=== PATIENT | female | born 1965 | race Caucasian/White ===

== ENCOUNTER 2019-06-14 13:22 | Emergency (ER) | payer OTHER, SELFPAY ==
--- NOTE | 2019-06-14 13:31 | ED.URI ---
HPI - URI/Sore Throat General Chief Complaint: Upper Respiratory Infection Stated Complaint: Fever Time Seen by Provider: 06/14/19 13:31 Source: patient and RN notes reviewed History of Present Illness HPI Narrative: Patient is a 53-year-old female presents the urgent care with her with complaints of fever, chills, headache, congestion, wheezing, cough, runny nose since Thursday. Patient states that she has been taking Tylenol and Excedrin with little relief. Denies of any shortness of breath. No other acute complaints. No acute distress noted. Patient read the plan of care. Related Data Home Medications Medication Instructions Recorded Confirmed diclofenac sodium 75 mg PO BID 06/14/19 06/14/19 Allergies Allergy/AdvReac Type Severity Reaction Status Date / Time No Known Allergies Allergy Verified 06/14/19 13:45 Review of Systems Review of Systems: Narrative: CONSTITUTIONAL: Reports of fever, chills, sweats EYES: Denies visual changes, redness, or discharge. ENT: Reports of rhinorrhea, congestion CARDIOVASCULAR: Denies chest pain, palpitations, or edema. RESPIRATORY: Reports of chest congestion, cough, wheezing GASTROINTESTINAL: Denies abdominal pain, nausea, vomiting, or diarrhea. GENITOURINARY: Denies dysuria or hematuria. SKIN: Denies rash or itching. MUSCULOSKELETAL: Denies back pain, joint pain; reports of body aches NEUROLOGIC: Reports of headache All other systems reviewed are negative, except as documented in HPI. PMFSH Social History Social History Gender identity (if verbalized by the patient): Female Comments At the time of my signature, I reviewed and agree with the nursing past medical, surgical, social, and family history. There is no relevant family history pertinent to the patient complaint. Exam Narrative: Exam Narrative: GENERAL: This is a well-nourished, well-developed patient, appears fatigued and slightly flushed HEAD: normocephalic, atraumatic. EYES: PERRL. Sclera clear/white. Vision is grossly intact. EARS: External ears normal, auditory canals clear and without drainage, mild fluid noted behind bilateral TMs, TMs normal without perforation. Hearing grossly intact. NOSE: External nose normal with no obvious nasal discharge, bilateral erythemic nares, clear to yellow rhinorrhea. THROAT: Mucous membranes moist, posterior pharynx clear. Mild postnasal drainage NECK: Neck supple CARDIOVASCULAR: Regular rate and rhythm without murmurs, gallops, or rubs. RESPIRATORY: Clear to auscultation. Breath sounds equal bilaterally. No wheezes, rales, or rhonchi. GASTROINTESTINAL: Abdomen soft, non-tender, nondistended. Bowel sounds are active. No hepato-splenomegaly, or palpable masses. No guarding. SKIN: warm, intact with no suspicious lesions or rash, good texture and turgor. NEURO: awake, alert, and oriented to person, place and time. There were no obvious focal neurologic abnormalities. EXTREMITIES: No clubbing, cyanosis, or edema. Course Vital Signs Vital signs: Vital Signs Temperature 101.1 F H 06/14/19 13:38 Pulse Rate 102 H 06/14/19 13:38 Respiratory Rate 18 06/14/19 13:38 Blood Pressure 118/78 06/14/19 13:38 Pulse Oximetry 99 06/14/19 13:38 Temperature 101.1 F H 06/14/19 13:38 Pulse Rate 102 H 06/14/19 13:38 Respiratory Rate 18 06/14/19 13:38 Blood Pressure 118/78 06/14/19 13:38 Pulse Oximetry 99 06/14/19 13:38 Reviewed MDM - URI/Sore Throat MDM Narrative Medical decision making narrative: Reviewed lab results with the patient. She is aware that she is positive for influenza A. Treat symptoms with epck-heb-nksinvb medication such as Robitussin/Delsym for cough, Claritin for allergy-like symptoms, Flonase for nasal congestion, Tylenol/Motrin for fever/body aches. Increase fluids, especially water and rest. Use a humidifier. Be aware of symptoms of dehydration such as lethargy, confusion, increased weakness, dry lips, dry eyes. Follow-up with Let[facility]
[2019-06-14 13:38] VITALS: BP 118/78; PULSE 102; RESP 18; TEMP 38.4; O2SAT 99
== END 2019-06-14 14:05 | disposition home or self-care (01) ==
PROVIDERS: Emergency Provider Nurse Practitioner Family
DX: J10.1 Influenza due to other identified influenza virus with other respiratory manifestations (principal)
CPT/HCPCS: 87804; 99213; G0463

== ENCOUNTER 2020-06-03 14:40 | Emergency (ER) | payer OTHER, SELFPAY ==
--- NOTE | ~2020-06-03 | CT_ITS ---
EXAMINATION: CT abdomen pelvis w con DATE: 06/03/2020 16:37 INDICATION: Left-sided abdomen pain TECHNIQUE: Computed tomography (CT) of the abdomen and pelvis was performed with 100 cc Omnipaque 350 intravenous contrast. The dose-length product was 554.51 mGy-cm. Automated exposure control and iter ative reconstruction technique were employed. COMPARISON: None. FINDINGS: Lung bases unremarkable. Heart size normal. No significant pleural or pericardial effusion. No significant vascular abnormality. No lymphadenopathy. Fatty infiltration of the liver. The spleen, pancreas, adrenal glands and kidneys are unremarkable. G allbladder is present. Nonobstructive bowel gas pattern. No evidence for diverticulitis. Normal appen cheng. There is a cystic tubular structure in the right pelvis above the bladder with adjacent radioden sity, possibly surgical clip. No acute osseous abnormality. No free air or free fluid. IMPRESSION: 1. No acute abdominal abnormality. 2: Cystic tubular structure right upper pelvis measuring 4 x 1.3 cm greatest axial dimension. Differ ential diagnosis includes dilated fallopian tube and peritoneal inclusion cyst. Consider follow-up pe lvic ultrasound on a nonemergent basis. Reviewed, dictated and finalized at location A. [facility] IMPRESSION: 1. No acute abdominal abnormality. 2: Cystic tubular structure right upper pelvis measuring 4 x 1.3 cm greatest a xial dimension. Differential diagnosis includes dilated fallopian tube and lang toneal inclusion cyst. Consider follow-up pelvic ultrasound on a nonemergent ba sis.
[2020-06-03 14:47] VITALS: BP 137/75; PULSE 78; RESP 20; TEMP 36.6; O2SAT 98
[2020-06-03 15:01] LABS: Basophils Absolute Auto 0.1 K/mm3 (0.0-0.1); Basophils Percent Auto 1.1 % (0.2-1.2); Eosinophils Absolute Auto 0.3 K/mm3 (0-0.3); Eosinophils Percent Auto 4.6 % (0-4.4); Hematocrit 41.6 % (37.0-47.0); Hemoglobin 13.9 g/dL (12.0-15.0); Immature Granulocyte Absolute 0.01 K/mm3 (0.00-0.031); Immature Granulocyte Percent A 0.2 % (0-0.5); Lymphocytes Percent Auto 43.9 % (18.3-44.2); Mean Corpuscular HGB Conc 33.4 g/dl (32-36); Mean Corpuscular Hemoglobin 30.2 pg (26-34); Mean Corpuscular Volume 90.4 fl (80-100); Mean Platelet Volume 9.8 fl (7.4-10.4); Monocytes Absolute Auto 0.5 K/mm3 (0.1-0.6); Monocytes Percent Auto 8.9 % (2.6-8.5); Neutrophils Absolute Auto 2.4 K/mm3 (1.3-6.7); Neutrophils Percent Auto 41.3 % (45.5-73.1); Platelet Count Result 295 k/mm3 (150-375); White Blood Count 5.7 K/mm3 (4.5-10.0)
--- NOTE | 2020-06-03 15:03 | ED.ABDPAIN ---
HPI - Abdominal Pain General Chief Complaint: Abdominal Pain Stated Complaint: l flank pain Time Seen by Provider: 06/03/20 14:54 Source: patient Mode of arrival: ambulatory Limitations: no limitations History of Present Illness HPI narrative: This patient is a 54 year old female with history of kidney stones who presents for evaluation of left flank pain . She developed on Thursday while she was getting dressed. She states her pain is located on left side of abdomen and bilateral lower back. She states she has no pain when she stands. She develops pain when she moves to her left and her right. She thinks her pain is due to a kidney stone, so she took 1 percocet before coming to ER. She denies associated nausea, vomiting, diarrhea, hematuria, dysuria, fever or chills. Pertinent past history: kidney stones Pain Consistency: intermittent Location: L flank Quality: stabbing Radiation: back Exacerbating factors: movement Related Data Allergies Allergy/AdvReac Type Severity Reaction Status Date / Time No Known Allergies Allergy Verified 06/03/20 14:56 Review of Systems Review of Systems: All systems reviewed & are unremarkable except as noted in HPI and below Constitutional: Constitutional: Denies chills and Denies fever(s) Cardiovascular: Cardiovascular: Denies chest pain Gastrointestinal: Gastrointestinal: Reports abdominal pain, Denies diarrhea, Denies nausea and Denies vomiting Genitourinary: Genitourinary: Denies hematuria, Denies dysuria and Reports flank pain Musculoskeletal: Musculoskeletal: Reports back pain [facility] Past Medical History Medical History (Updated 06/03/20 @ 17:20 by Kaye Giron MD) Kidney stone Surgical History Surgical History (Updated 06/03/20 @ 15:54 by Kaye Giron MD) H/O tubal ligation Social History Social History (Updated 06/03/20 @ 15:54 by Kaye Giron MD) Smoking status: Never smoker Gender identity (if verbalized by the patient): Female Exam Const: General: alert Orientation/consciousness: patient oriented x3 HENMT: Head: normocephalic and atraumatic Face and sinus: face symmetric Mouth: Yes Normal oral and palatal mucosa present, Yes lip normal, Yes oropharynx normal and Yes moist mucous membranes Eyes: EOM: EOMs intact bilaterally Resp: Effort & Inspection: normal respiratory effort and no retractions Auscultation: clear to auscultation bilaterally Cardio: Rate: regular rate Rhythm: regular rhythm Heart sounds: no murmurs GI: GI Palp: Yes Soft to palpation, No Tenderness to palpation present (GI) and No Guarding due to palpation present (GI) Auscultation: normal bowel sounds Neuro: General: patient oriented x3 and moves all extremities Psych: Mental Status: mental status grossly normal Affect: normal affect Course Reevaluation(s) Reevaluation #1: PAtient states she feels better. she reports some low back pain with movement so this is likely musculoskeletal. I discussed labs are unremarkable. I discussed CT findings that will need outpatient evaluation with pelvic ultrasound Date: 06/03/20 Time: 17:18 Vital Signs Vital signs: Vital Signs Temperature 97.8 F 06/03/20 14:47 Pulse Rate 78 06/03/20 14:47 Respiratory Rate 20 06/03/20 14:47 Blood Pressure 137/75 06/03/20 14:47 Pulse Oximetry 98 06/03/20 14:47 Temperature 97.8 F 06/03/20 14:47 Pulse Rate 78 06/03/20 17:32 Respiratory Rate 20 06/03/20 14:47 Blood Pressure 114/73 06/03/20 17:32 Pulse Oximetry 100 06/03/20 17:32 MDM - Abdominal Pain Lab Data Attestation: I reviewed the patient's lab results. Result diagrams: 06/03/20 14:51 06/03/20 14:51 Labs: Lab Results 06/03/20 06/03/20 06/03/20 Range/Units 14:51 14:51 14:51 WBC 5.7 (4.5-10.0) K/mm3 RBC 4.60 (4.2-5.4) M/mm3 Hgb 13.9 (12.0-15.0) g/dL Hct 41.6 (37.0-47.0) % MCV 90.4 (80-100) fl MCH 30.2 (26-34)
[2020-06-03] MEDS: MORPHINE SULFATE (*CRX) 4 MG/ML INJ IV PUSH (15:08)
[2020-06-03] MEDS: ONDANSETRON INJ 4 MG/2 ML VIAL IV PUSH (15:08)
[2020-06-03 15:10] LABS: Add Urine Microscopic? NO; Appearance Urine Clear (Clear); Bilirubin Urine Negative (Negative); Blood Urine Negative (Negative); Color Urine Colorless (Yellow); Glucose Urine UA Negative (Negative); Ketones Urine Negative (Negative); Leukocyte Esterase Ur Negative LEU/UL (Negative); Nitrate Urine Negative (Negative); Protein Urine Negative (Negative); Urobilinogen Urine Negative mg/dL (<2.0)
[2020-06-03 15:13] LABS: Anion Gap 4 mmol/L (8-16); Blood Urea Nitrogen 14 mg/dL (7-17); Calcium 9.3 mg/dL (8.4-10.2); Carbon Dioxide 28 mmol/L (22-30); Chloride 106 mmol/L (98-107); Estimated CRCL calculation 82 ml/min; Estimated Glomerular Filt Rate > 60; Glucose 95 mg/dL (65-105); Sodium 138 mmol/L (137-145)
[2020-06-03 15:15] LABS: Specific Grav Ur 1.002 (1.001-1.035)
[2020-06-03 15:40] LABS: Alanine Aminotransferase 24 U/L (4-35); Albumin Level 4.3 g/dL (3.5-5.1); Alkaline Phosphatase 94 U/L (38-126); Aspartate Amino Transferase 45 U/L (14-36); Bilirubin,Total 0.5 mg/dL (0.2-1.3); Lipase 235 U/L (23-300)
[2020-06-03 17:32] VITALS: BP 114/73; PULSE 78; O2SAT 100
== END 2020-06-03 17:37 | disposition home or self-care (01) ==
PROVIDERS: Emergency Medicine; Emergency Provider General Practice
DX: R10.9 Unspecified abdominal pain (principal); M54.5 Low back pain; Z87.442 Personal history of urinary calculi; R93.5 Abnormal findings on diagnostic imaging of other abdominal regions, including retroperitoneum
CPT/HCPCS: 36415; 74177; 80048; 80076; 81003; 83690; 85025; 96374; 96375; 99284; J2270; J2405; Q9967